=== PATIENT | male | born 2000 | race Caucasian/White ===

== ENCOUNTER 2025-05-09 09:23 | Emergency (ER) | payer SELFPAY ==
--- NOTE | 2025-05-09 09:39 | ED.EAR ---
HPI - Ear Problem General Chief complaint: Ear Stated complaint: ears Time Seen by Provider: 05/09/25 09:39 Source: patient and family Mode of arrival: ambulatory Limitations: no limitations History of Present Illness HPI Narrative: 24-year-old male presents with complaint of pain to bilateral ear canals for 1 week. Patient recently took a bath, was underwater, thinks infection is from bathtub. Has been using an [id number] ear pain drops with little relief. All systems reviewed and negative except as noted above. Related Data Allergies Allergy/AdvReac Type Severity Reaction Status Date / Time Penicillins Allergy Intermediate Swelling Verified 05/09/25 09:54 of Lip/Tongue/Throat Review of Systems Review of Systems: CONSTITUTIONAL: Denies fever, chills, or sweats. EYES: Denies visual changes, redness, or discharge. ENT: Denies rhinorrhea, congestion, sore throat . Reports bilateral ear pain CARDIOVASCULAR: Denies chest pain, palpitations, or edema. RESPIRATORY: Denies cough or dyspnea. GASTROINTESTINAL: Denies abdominal pain, nausea, vomiting, or diarrhea. GENITOURINARY: Denies dysuria or hematuria. SKIN: Denies rash or itching. MUSCULOSKELETAL: Denies back pain, joint pain, or myalgia. NEUROLOGIC: Denies headache, numbness, or weakness. PSYCHIATRIC: Denies anxiety or depression. All other systems reviewed are negative, except as documented in HPI. PMFSH Comments At time of signature, agree with nursing past medical, surgical, social and family history. There is no relevant family history pertinent to the presenting complaint. Exam Narrative: GENERAL: This is a well-nourished, well-developed patient, in no apparent distress. HEAD: normocephalic, atraumatic. EYES: PERRL. Sclera clear/white. Vision is grossly intact. EARS: External ears normal, erythema and swelling to bilateral ear canals without drainage. tenderness on exam., TMs normal without perforation. Hearing grossly intact. NOSE: External nose normal NECK: Neck supple, non-tender without lymphadenopathy, masses or thyromegaly. CARDIOVASCULAR: Regular rate and rhythm without murmurs, gallops, or rubs. RESPIRATORY: Clear to auscultation. Breath sounds equal bilaterally. No wheezes, rales, or rhonchi. SKIN: warm, Dry, intact with no suspicious lesions or rash, good texture and turgor. NEURO: awake, alert, and oriented to person, place and time. There were no obvious focal neurologic abnormalities. EXTREMITIES: No joint tenderness, effusion, or edema noted. Course Course Level of Care: Express Care Visit Vital Signs Vital signs: Reviewed Medical Decision Making MDM Narrative Medical decision making narrative: will treat bacterial otitis externa with Ciprodex. Patient agrees with plan of care. Recommend he avoid bathtub and swelling full until symptoms have resolved. Patient well-appearing, nontoxic. Discharge Plan Discharge Clinical Impression: Bilateral otitis externa Patient Disposition: Home Condition: Stable Instructions: Antibiotic Form, Swimmer's Ear (ED) Additional Instructions: place antibiotic ear drops as prescribed. Take ibuprofen or Tylenol every 6-8 hours as needed for pain. Avoid swimming and bathtubs until all symptoms have resolved. See your doctor if symptoms are not improving. Patient Language: Portuguese Prescriptions: New ciprofloxacin-dexamethasone 0.3-0.1 % drops,suspension 4 drp EACH EAR Q12H 7 Days Qty: 7.5 0RF Follow-up/Referrals: PHYSICIAN,SLEEP SCIENTIST [Primary Care Provider] - Time of Disposition: 09:51
[2025-05-09 09:41] VITALS: BP 129/65; PULSE 78; RESP 16; TEMP 36.7; O2SAT 99
== END 2025-05-09 10:02 | disposition home or self-care (01) ==
PROVIDERS: Emergency Provider Nurse Practitioner Family
DX: H60.93 Unspecified otitis externa, bilateral (principal)
CPT/HCPCS: 99203; G0463